=== PATIENT | female | born 2000 | race African-American/Black ===

== ENCOUNTER 2022-04-07 18:58 | Emergency (ER) | payer SELFPAY ==
[~2022-04-07] VITALS: Ht 167.6 cm; Wt 89.0 kg
[2022-04-08] MEDS ORDERED: ONDANSETRON 4MG ODT PO ONE (00:30)
[2022-04-08] MEDS ORDERED: ONDA4TAB50 MT (01:11)
[2022-04-08 01:21] VITALS: BP 115/85
== END 2022-04-08 01:20 | disposition home or self-care (01) ==
LOC: ER 18:58
DX: A05.9 Bacterial foodborne intoxication, unspecified (principal); R11.2 Nausea with vomiting, unspecified; R10.10 Upper abdominal pain, unspecified; R19.7 Diarrhea, unspecified
CPT/HCPCS: 99283; Q0162